=== PATIENT | male | born 1940 | race Caucasian/White ===

== ENCOUNTER 2019-08-29 13:47 | Outpatient (CLI) | payer OTHER ==
[2019-08-29] MEDS ORDERED: METH10TA4 PO (15:10)
[2019-08-29] MEDS ORDERED: NAPR-996 PO (15:10)
[2019-08-29 15:17] LABS: BASOPHILS % (AUTO) 0.4 % (0-1); EOSINOPHILS # (AUTO) 0.6 X10'3 (0-0.9); EOSINOPHILS % (AUTO) 6.3 % (0-6); LYMPHOCYTES # (AUTO) 4.2 X10'3 (1.1-4.8); LYMPHOCYTES % (AUTO) 46.8 % (21-51); MEAN CORPUSCULAR HEMOGLOBIN 29.7 PG (27.0-31.0); MEAN CORPUSCULAR HGB CONC 33.9 g/dL (33.0-36.5); MEAN CORPUSCULAR VOLUME 87.8 FL (78-98); MONOCYTES # (AUTO) 0.5 X10'3 (0-0.9); NEUTROPHILS # (AUTO) 3.7 X10'3 (1.8-7.7); NEUTROPHILS % (AUTO) 41.5 % (42-75); PRE OP HEMATOCRIT 46.6 % (42.0-52.0); PRE OP HEMOGLOBIN 15.8 g/dL (14.0-17.9); PRE OP PLATELET COUNT 233 X10'3 (140-440); RED BLOOD COUNT 5.31 X10'6 (4.70-6.10); RED CELL DISTRIBUTION WIDTH 13.7 % (11.5-14.5)
[2019-08-29 15:30] LABS: PRE OP INR 1.1 INR; PRE OP PROTIME 10.9 SECONDS (9.0-12.0)
[2019-08-29 15:35] LABS: ALANINE AMINOTRANSFERASE 43 U/L (12-78); ALBUMIN/GLOBULIN RATIO 1.3 (1.1-1.5); ALKALINE PHOSPHATASE 65 IU/L (46-116); ANION GAP 8 (8-16); ASPARTATE AMINO TRANSFERASE 27 U/L (10-37); BILIRUBIN,TOTAL 0.5 MG/DL (0.1-1.0); BLOOD UREA NITROGEN 16 MG/DL (7-18); BUN/CREATININE RATIO 19.8 (5.4-32.0); CALCIUM 8.8 MG/DL (8.5-10.1); CHLORIDE 107 MMOL/L (99-107); CREATININE 0.81 MG/DL (0.60-1.10); GLUCOSE 89 MG/DL (70-104); POTASSIUM 4.1 MMOL/L (3.5-5.1); SODIUM 140 MMOL/L (135-145); TOTAL PROTEIN 7.2 G/DL (6.4-8.2); eGFR > 90 ML/MIN
== END 2019-08-29 23:59 | disposition home or self-care (01) ==
LOC: PRE-OP 13:47 → EDSTATUS 09-04 08:00
PROVIDERS: ATTEND Otolaryngology
DX: Z01.818 Encounter for other preprocedural examination (principal); D69.1 Qualitative platelet defects
CPT/HCPCS: 36415; 80053; 85025; 85576; 85610; 85730; 93005

== ENCOUNTER 2019-10-17 09:58 | Day surgery (SDC) | payer OTHER ==
[2019-10-11 16:12] LABS: BASOPHILS % (AUTO) 0.4 % (0-1); EOSINOPHILS # (AUTO) 0.3 X10'3 (0-0.9); EOSINOPHILS % (AUTO) 3.3 % (0-6); LYMPHOCYTES # (AUTO) 4.3 X10'3 (1.1-4.8); LYMPHOCYTES % (AUTO) 44.7 % (21-51); MEAN CORPUSCULAR HEMOGLOBIN 30.2 PG (27.0-31.0); MEAN CORPUSCULAR HGB CONC 33.9 g/dL (33.0-36.5); MONOCYTES # (AUTO) 0.6 X10'3 (0-0.9); MONOCYTES % (AUTO) 6.6 % (2-12); NEUTROPHILS # (AUTO) 4.3 X10'3 (1.8-7.7); PRE OP HEMATOCRIT 43.8 % (42.0-52.0); PRE OP HEMOGLOBIN 14.9 g/dL (14.0-17.9); PRE OP PLATELET COUNT 202 X10'3 (140-440); RED BLOOD COUNT 4.92 X10'6 (4.70-6.10); RED CELL DISTRIBUTION WIDTH 13.7 % (11.5-14.5)
[2019-10-11 16:23] LABS: ALBUMIN 3.9 G/DL (3.4-5.0); ALBUMIN/GLOBULIN RATIO 1.3 (1.1-1.5); ALKALINE PHOSPHATASE 62 IU/L (46-116); BLOOD UREA NITROGEN 18 MG/DL (7-18); BUN/CREATININE RATIO 18.8 (5.4-32.0); CALCIUM 8.9 MG/DL (8.5-10.1); CHLORIDE 107 MMOL/L (99-107); CREATININE 0.96 MG/DL (0.60-1.10); PRE OP ALT 31 U/L (30-65); PRE OP ANION GAP 10 (8-16); PRE OP AST 27 U/L (10-37); PRE OP BILIRUB, TOTAL 0.5 MG/DL (0.0-1.0); PRE OP GLUCOSE 97 MG/DL (70-104); PRE OP POTASSIUM 4.1 MMOL/L (3.4-5.1); PRE OP PROTIME 10.8 SECONDS (9.0-12.0); PRE OP SODIUM 144 MMOL/L (135-145); TOTAL CARBON DIOXIDE 27.4 MMOL/L (24-32); TOTAL PROTEIN 6.9 G/DL (6.4-8.2); eGFR 76 ML/MIN
[2019-10-17] VITALS (13 sets, daily range): BP systolic 141–159; BP diastolic 84–98
[~2019-10-17] VITALS: Ht 175.3 cm; Wt 85.3 kg
[~2019-10-17 09:58] MED LIST: METH10TA4 PO; NAPR-996 PO; famotidine 20mg tablet PO ONE; meperidine/PF 25mg/ml syringe IV PRN; morphine 2 MG/ML inj. syringe IV PRN; morphine 4 MG/ML inj SYRINge IV PRN; ondansetron/PF 4mg/2ml inj IV PRN; proCHLORperazine 10 MG/2 ml inj IV PRN; ringers solution, lacted 1,000 ML IV SCH
[2019-10-17] MEDS ORDERED: mupirocin 2% ointment 22GM ONE (12:27)
[2019-10-17] MEDS ORDERED: LIDOcaine 1% w/epiNEPHrine 1:200,000 30ml vial ONE (12:27)
[2019-10-17] MEDS ORDERED: BUPIVAcaine 0.5% W/EPI /PF 30ml vial ONE (12:28)
[2019-10-17] MEDS ORDERED: oxymetazoline 15 ML nasal spray NS ONE (12:28)
[2019-10-17] MEDS ORDERED: cocaine 4% topical solution 4ml bottle ONE (12:30)
[2019-10-17] MEDS ORDERED: LIDOcaine 1% W/epiNEPHrine 1:100,000 20ml vial ONE ×2 (12:50→12:51)
[2019-10-17] MEDS ORDERED: dexamethasone sod phosphate 10mg/ml inj ONE (13:02)
[2019-10-17] MEDS ORDERED: sevoflurane 250ml liquid IH ONE (13:02)
[2019-10-17] MEDS ORDERED: fentaNYL/PF 50MCG/1 ML 2ML syringe ONE (13:06)
[2019-10-17] MEDS ORDERED: LIDOcaine 2% (20mg/ml) 5ml vial ONE (13:06)
[2019-10-17] MEDS ORDERED: propofol inj 20 ML IV ONE (13:06)
[2019-10-17] MEDS ORDERED: midazolam 2 mg/2 ml injection ONE (13:06)
[2019-10-17] MEDS ORDERED: ceFAZolin 1000mg inj ONE ×2 (13:25)
[2019-10-17] MEDS ORDERED: ondansetron/PF 4mg/2ml inj ONE (13:26)
--- NOTE | 2019-10-17 14:24 | NUR ---
RECEIVED VIA GURROGELIO ACCOMPANIED BY ANESTHESIOLOGIST DR MONSALVE, REPORT GIVEN. 20 GAUGE PIV R WRIST PATENT AND RUNNING LR AT 100 ML/HR, SKIN PINK AND WARM, VSS, MIRELES, ABD SOFT, COTTENOIDS IN BILATERAL NARES. PT DROWSY BUT AROUSES WITH NO COMPLAINT OF PAIN AT THIS TIME. Addendum: 10/17/19 at 1528 by Ana Cristina Sky RN Amended: Links added.
[2019-10-17] MEDS ORDERED: mupirocin 2% nasal ointment 1gm UD NS SCH (15:16)
[2019-10-17] MEDS ORDERED: oxymetazoline 15 ML nasal spray NS SCH (15:17)
[2019-10-17] MEDS ORDERED: salt irrigation nasal spray 45 ML SPRAY NS PRN (15:20)
--- NOTE | 2019-10-17 16:13 | NUR ---
20 GAUGE PIV R WRIST D/CD WITH CATHETER TIP INTACT, SKIN PINK AND WARM, VSS, MIRELES, ABD SOFT, MUSTACHE DRESSING OVER BILATERAL NARES WITH SCANT DRAINAGE. PT AWAKE AND ALERT WITH D/C CRITERIA MET. VSS, TOLERATING FLUIDS WELL, URINATING WITH NO PROBLEM. PAIN LEVEL AT 4. DISCHARGE INSTRUCTIONS GIVEN TO PT AND , VERBALIZED UNDERSTANDING, TRANSPORTED VIA WHEELCHAIR TO AND HOME IN PERSONAL VEHICLE.
== END 2019-10-17 16:13 | disposition home or self-care (01) ==
LOC: PAS 09:58
PROVIDERS: ATTEND Otolaryngology
DX: J34.2 Deviated nasal septum (principal); J34.3 Hypertrophy of nasal turbinates; G47.30 Sleep apnea, unspecified; M19.90 Unspecified osteoarthritis, unspecified site; F98.8 Other specified behavioral and emotional disorders with onset usually occurring in childhood and adolescence; Z88.8 Allergy status to other drugs, medicaments and biological substances; Z79.899 Other long term (current) drug therapy; Z98.890 Other specified postprocedural states; Z87.891 Personal history of nicotine dependence; Z79.01 Long term (current) use of anticoagulants; Z11.59 Encounter for screening for other viral diseases
CPT/HCPCS: 30140; 30520; 36415; 80053; 82948; 85025; 85610; 85730; 87635; A6402; C9250; J0690; J1100; J2001; J2175; J2250; J2405; J2704; J3010; J7040; J7120; A4618; A7000